=== PATIENT | male | born 1950 | race Caucasian/White ===

== ENCOUNTER → 2018-04-07 | Outpatient (CLI) | payer OTHER | LOC: BMCIMAGING 09:30 | PROVIDERS: ATTEND Emergency Medicine | DX: M25.551 Pain in right hip (principal) ==

== ENCOUNTER 2018-04-10 07:40 | Emergency (ER) | payer OTHER ==
--- NOTE | 2018-04-10 08:13 | EDPHY ---
H & P Time Seen by Provider: 04/10/18 07:55 HPI/ROS: CHIEF COMPLAINT: Sciatic pain HISTORY OF PRESENT ILLNESS: Patient is a 68-year-old male who presents emergency department with sciatic type pain. Patient states his pain started last Wednesday while walking. It gradually increased. He describes pain at the "right SI joint"radiating to the right lateral thigh. Occasionally radiates behind his right leg and down to his ankle. He states his pain is worse when he moves or stands up straight. He went to urgent care was treated with Vicodin and Riboxan. He has not received any steroid. The pain med does help please still has difficulty sleeping or standing up straight. No incontinence of urine or stool. No numbness or weakness. No fevers or chills. REVIEW OF SYSTEMS: My complete review of systems is negative except as mentioned in the HPI. Past Medical/Surgical History: Includes high cholesterol, anxiety Social history: Patient does not smoke. He is . Smoking Status: Never smoked Physical Exam: Vitals noted GENERAL: Well-appearing, in no acute distress, alert. HEENT: Eyes normal to inspection, normal pharynx, no signs of dehydration. NECK: Normal, supple. RESPIRATORY: Clear to auscultation bilaterally, no rales, rhonchi or wheezing. CVS: Regular rate and rhythm, no rubs, murmurs, or gallops. ABDOMEN: Soft, nontender, nondistended, no organomegaly. No mass BACK: Normal to inspection, no CVA tenderness. No spinal tenderness palpation. No step-off. Pelvis: No rash. Mild right SI tenderness to palpation. No deformity. SKIN: Normal color, no rash, warm, dry. No pallor. EXTREMITIES: No pedal edema, no calf tenderness, no Homans sign or cords, no joint swelling. NEURO/PSYCH: Alert and oriented x3, normal mood and affect, normal motor sensory exam. Negative foot raise bilaterally Constitutional: Initial Vital Signs Temperature (C) 36.8 C 04/10/18 07:42 Heart Rate 71 04/10/18 07:42 Respiratory Rate 16 04/10/18 07:42 Blood Pressure 158/86 H 04/10/18 07:42 O2 Sat (%) 95 04/10/18 07:42 O2 Delivery Mode Room Air Allergies/Adverse Reactions: No Known Allergies Allergy (Unverified 04/10/18 07:49) Home Medications: Medication Instructions Recorded Citalopram 04/10/18 Diazepam [Valium] 5 mg PO Q6 #11 tab 04/10/18 Hydrocodone 04/10/18 Robaxin 04/10/18 SIMVASTATIN 04/10/18 oxyCODONE/APAP 5/325 [Percocet 1 - 2 tab PO Q4PRN PRN #11 tab 04/10/18 5/325 (*)] predniSONE 20 mg PO DAILY 4 Days tab 04/10/18 Medical Decision Making ED Course/Re-evaluation: In the emergency department I discussed possible etiologies with the patient. I answered all his questions. Patient will be given prednisone. He will be switched from Vicodin to Percocet. He will continue to take ibuprofen. He will be given Valium. The patient is aware that he should discontinue his Riboxan and vicodin Differential Diagnosis: My differential includes but is not limited to disc herniation, sciatica, mass, malignancy, hematoma, cauda equina syndrome Departure - Departure Disposition: Home, Routine, Self-Care Clinical Impression: Sciatica Qualifiers: Laterality: right Qualified Code(s): M54.31 - Sciatica, right side Condition: Good Instructions: Sciatica (ED) Additional Instructions: Discontinue your Riboxan and hydrocodone. You been given new prescriptions. Take your prednisone once a day. You been given your 1st dose in the emergency department. Take both Percocet and Valium as needed. Referrals: Yoel Jovel MD [Primary Care Provider] - 2-3 days, call for appt. Prescriptions: Diazepam [Valium] 5 mg PO Q6 #11 tab oxyCODONE/APAP 5/325 [Percocet 5/325 (*)] 1 - 2 tab PO Q4PRN PRN #11 tab PRN Reason: For Moderate To Severe Pain predniSONE 20 mg PO DAILY 4 Days tab
[2018-04-10] MEDS ORDERED: predniSONE 20 MG TAB PO ONE (08:14)
[2018-04-10 08:23] VITALS: BP 128/89
== END 2018-04-10 08:26 | disposition home or self-care (01) ==
DX: M54.31 Sciatica, right side (principal)
CPT/HCPCS: 99284; J7512

== ENCOUNTER 2018-05-03 14:04 | Day surgery (SDC) | payer OTHER ==
[2018-05-03] MEDS ORDERED: LIDOCAINE 1% 300 MG/30 ML SDV ONE (15:18)
== END 2018-05-03 16:24 | disposition home or self-care (01) ==
LOC: FIMAGING 14:04
PROVIDERS: ATTEND Physician Assistant
DX: M54.16 Radiculopathy, lumbar region (principal)

== ENCOUNTER 2019-03-15 05:32 | Observation (INO) | payer OTHER ==
[2019-03-15] MEDS ORDERED: ACETAMINOPHEN 500 MG TAB PO ONE (05:56)
[2019-03-15] MEDS ORDERED: ceFAZolin 2 GM/DEXTROSE 100 ML IV ONE (05:56)
[2019-03-15] MEDS ORDERED: GABAPENTIN 300 MG CAP PO ONE (05:56)
[2019-03-15] MEDS ORDERED: LR 1,000 ML IV ONE (05:57)
[2019-03-15] MEDS ORDERED: LIDOCAINE 1% 2 ML INJ ID PRN (05:57)
[2019-03-15] MEDS ORDERED: CHLORHEXIDINE GLUC HIBICLENS 118 ML BTL TP ONE (06:33)
[2019-03-15] MEDS ORDERED: BUPIVACAINE/EPI 0.25% 30 ML SDV ONE (06:33)
[2019-03-15] MEDS ORDERED: THROMBIN (BOVINE) 5,000 UNIT VIAL TP ONE (06:33)
[2019-03-15] MEDS ORDERED: BACITRACIN 50,000 UNITS/10 ML SYR IRR ONE (06:34)
[2019-03-15] MEDS ORDERED: LORATADINE PO PRN (06:50)
[2019-03-15] MEDS ORDERED: PSEUDOEPHEDRINE PO PRN (06:50)
--- NOTE | 2019-03-15 06:50 | PDHPUP ---
History & Physical Update H&P update statement: This history and physical update is based on an assessment of the patient which was completed after admission or registration (within 24 hours), but prior to the surgery/procedure. H&P update: H&P reviewed & patient examined, no change in patient's condition since H&P completed
[2019-03-15] MEDS ORDERED: ONDANSETRON 4 MG/2 ML VIAL IVP PRN ×2 (07:00→11:35)
[2019-03-15] MEDS ORDERED: diphenhydrAMINE 25 MG CAP PO PRN (07:00)
[2019-03-15] MEDS ORDERED: POLYETHYLENE GLYCOL 3350 17 GM PKT PO PRN (07:00)
[2019-03-15] MEDS ORDERED: HYDROmorphONE/DILAUDID 1 MG/ML INJ IVP PRN ×2 (07:00→11:35)
[2019-03-15] MEDS ORDERED: ONDANSETRON DISINTEGRATING 4 MG TAB PO PRN (07:00)
[2019-03-15] MEDS ORDERED: NS 1,000 ML IV SCH (07:00)
[2019-03-15] MEDS ORDERED: oxyCODONE IR 5 MG TAB PO PRN ×2 (07:00→11:35)
[2019-03-15] MEDS ORDERED: LACTULOSE 20 GM/30 ML UDCUP PO PRN (07:00)
[2019-03-15] MEDS ORDERED: BISACODYL 10 MG SUPP PR PRN (07:00)
[2019-03-15] MEDS ORDERED: MAGNESIUM HYDROXIDE 30 ML UDCUP PO PRN (07:00)
[2019-03-15] MEDS ORDERED: MIDAZOLAM 2 MG/2 ML VIAL IVP ONE (07:03)
[2019-03-15] MEDS ORDERED: MIDAZOLAM 2 MG/2 ML VIAL ONE (07:05)
--- NOTE | 2019-03-15 07:09 | PDANEPAE ---
ANE History of Present Illness Right L4 5 and L5 S1 ANE Past Medical History - Cardiovascular History Hx Hypertension: No Hx Arrhythmias: No Hx Chest Pain: No Hx Coronary Artery / Peripheral Vascular Disease: No Hx CHF / Valvular Disease: No Hx Palpitations: No Cardiovascular History Comment: denies - Pulmonary History Hx COPD: No Hx Asthma/Reactive Airway Disease: No Hx Recent Upper Respiratory Infection: Yes Hx Oxygen in Use at Home: No Hx Sleep Apnea: No Sleep Apnea Screening Result - Last Documented: Positive Pulmonary History Comment: seasonal allergies ~twice a year and bronchitis; - Neurologic History Hx Cerebrovascular Accident: No Hx Seizures: No Hx Dementia: No Neurologic History Comment: R foot drop s/t spinal stenosis - Endocrine History Hx Diabetes: No Hypothyroid: No Hyperthyroid: No Obesity: no - Renal History Hx Renal Disorders: No - Liver History Hx Hepatic Disorders: No - Neurological & Psychiatric Hx Hx Neurological and Psychiatric Disorders: No Neurological / Psychiatric History Comment: "Happy pill (citalopram) helps with stress" - Cancer History Hx Cancer: No - Congenital Disorder History Hx Congenital Disorders: Yes 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 Spinal stenosis lumbar and cervical spine. Spondylolithesis - Chronic Pain History Chronic Pain: Yes (R Hip/Leg Pain) - Surgical History Prior Surgeries: Bilateral rotator cuffs. T&A. [place] teeth ANE Review of Systems Review of Systems: - Exercise capacity METS (RN): 4 METS ANE Patient History - Allergies Allergies/Adverse Reactions: No Known Allergies Allergy (Unverified 04/10/18 07:49) - Home Medications Home Medications: Citalopram [CeleXA] 20 mg PO DAILY 04/10/18 [Last Taken 03/14/19 21:00] Simvastatin 20 mg PO DAILY 04/10/18 [Last Taken 03/14/19 21:00] Loratadine/Pseudoephedrine [Claritin-D 12 Hour Tablet] 1 each PO BID PRN [Last Taken 03/14/19 09:00] Ascorbic Acid [Vitamin C 500 mg (*)] 1,000 mg PO DAILY 03/06/19 [Last Taken ] Calcium Carbonate [Oyster Shell Calcium 500 mg (*)] 1,000 mg PO DAILY 03/06/19 [ Last Taken 03/08/19] Herbals/Supplements -Info Only 1 ea PO DAILY 03/06/19 [Last Taken 03/08/19] Oxybutynin Chloride Xl [Ditropan Xl 5mg (*)] 10 mg PO DAILY 03/06/19 [Last Taken 03/13/19] Ranitidine HCl 150 mg PO BID 03/06/19 [Last Taken 03/08/19] Terazosin HCl [Hytrin 2 MG (*)] 2 mg PO HS 03/06/19 [Last Taken 03/14/19 21:00] - NPO status NPO Status: no food or drink >8 hours NPO Since - Liquids (Date): 03/14/19 NPO Since - Liquids (Time): 21:30 NPO Since - Solids (Date): 03/14/19 NPO Since - Solids (Time): 21:30 - Smoking Hx Smoking Status: Never smoked - Family Anes Hx Family Hx Anesthesia Complications: None. ANE Labs/Vital Signs - Vital Signs Blood Pressure: 116/75 Heart Rate: 63 Respiratory Rate: 16 O2 Sat (%): 93 Height: 182.88 cm Weight: 83.915 kg ANE Physical Exam - Airway Neck exam: decreased ROM Mallampati Score: Class 2 - Pulmonary Pulmonary: no respiratory distress, no rales or rhonchi - Cardiovascular Cardiovascular: regular rate and rhythym, no murmur, rub, or gallop ANE Anesthesia Plan Anesthesia Plan: general endotracheal anesthesia Specialized Airway: video laryngoscope
[2019-03-15] MEDS ORDERED: fentaNYL 250 MCG/5 ML INJ ONE (07:15)
[2019-03-15] MEDS ORDERED: PROPOFOL/EMULSION 500 MG/50 ML BOTTLE IV ONE ×3 (07:15→09:46)
[2019-03-15] MEDS ORDERED: BUPIVACAINE 0.25% 30 ML SDV ONE (07:57)
[2019-03-15] MEDS ORDERED: fentaNYL 100 MCG/2 ML INJ ONE ×2 (08:49→10:52)
[2019-03-15] MEDS ORDERED: ESMOLOL HCL 100 MG/10 ML VIAL IV ONE (08:53)
[2019-03-15] MEDS ORDERED: REMIFENTANIL HCL 1 MG VIAL ONE (08:56)
[2019-03-15] MEDS ORDERED: OXYBUTYNIN 5 MG EXT REL TAB PO SCH (09:00)
[2019-03-15] MEDS ORDERED: NON-FORMULARY NEW DRUG (Ranitidine Hcl [Ranitidine Hcl] 150 MG) PO SCH (09:00)
[2019-03-15] MEDS ORDERED: ROCURONIUM 100 MG/10 ML VIAL ONE (09:04)
[2019-03-15] MEDS ORDERED: PHENYLEPHRINE HCL 100 MCG/ML SYR ONE (09:04)
[2019-03-15] MEDS ORDERED: DEXAMETHASONE 4 MG/ML VIAL ONE (09:04)
[2019-03-15] MEDS ORDERED: GLYCOPYRROLATE 0.2 MG/1 ML VIAL ONE (09:04)
[2019-03-15] MEDS ORDERED: DEPO METHYLPREDNISOLONE 40 MG/ML SDV ONE (10:36)
[2019-03-15] MEDS ORDERED: ONDANSETRON 4 MG/2 ML VIAL ONE (10:49)
--- NOTE | 2019-03-15 11:29 | POSTOPPROG ---
Post Op Note Date of Operation: 03/15/19 Surgeon: Jennifer Healy Associate Producer: LENORA Esteves Anesthesiologist: MD Slick Anesthesia: GET(General Endotracheal), Local (Specify) Pre-op Diagnosis: lumbar stenosis right L4/5 and L5/S1 Post-op Diagnosis: LRS right L4/5 and L5/S1 Indication: RLE pain, stenosis Procedure: right L4/5 and L5/S1 hemilaminectomy with LRD Findings: see op report Inf/Abcess present in the surg proc area at time of surgery?: No Depth: Deep Incisional (Fascial) EBL: 100-500 Total fluids administered: see anestesia record Complications: none Bowel Protocol: Yes Clean Closure Performed: Yes
--- NOTE | 2019-03-15 11:32 | SOAPPROG ---
SOAP Progress Note Assessment/Plan: Post Op Visit: S: Awake and alert. NAD. Pt with expected lower back pain O: AFVSS/PERRLA/EOMI No droop CN 2-12 grossly intact +lt touch 5/5 BUE/BLE = CDI A/P: 69 yo male that is s/p right L4/5 and L5/S1 LRD/hemilaminectomy -orders in place -call with any questions or concerns -pt seen by Dr Healy -PT/OT pending -warning signs reviewed -dc later today or tomorrow-will check and see how Pt does Objective: Vital Signs Temp Pulse Resp BP Pulse Ox 36.8 C 63 16 116/75 93 03/15/19 06:41 03/15/19 07:09 03/15/19 07:09 03/15/19 07:09 03/15/19 07:09 ICD10 Worksheet Patient Problems: Problems Problem Status Onset Lateral recess stenosis of cervical spine Acute Lumbar stenosis Acute - ICD10 Problem Qualifiers (1) Lumbar stenosis Qualifiers: Neurogenic claudication status: with neurogenic claudication Qualified Code (s): M48.062 - Spinal stenosis, lumbar region with neurogenic claudication (2) Lateral recess stenosis of cervical spine
[2019-03-15] MEDS ORDERED: fentaNYL 100 MCG/2 ML INJ IVP PRN (11:35)
[2019-03-15] MEDS ORDERED: DIAZEPAM 10 MG/2 ML SYR IVP PRN (11:35)
[2019-03-15] MEDS ORDERED: NALOXONE HCL 0.4 MG/ML INJ IVP PRN (11:35)
[2019-03-15] MEDS ORDERED: METHOCARBAMOL 750 MG TAB ONE (12:19)
[2019-03-15] MEDS: METHOCARBAMOL 750 MG TAB PO PRN (12:20)
[2019-03-15] MEDS: FAMOTIDINE 20 MG TAB PO SCH ×2 (12:35→21:52)
[2019-03-15] MEDS: ATORVASTATIN CALCIUM 10 MG TAB PO SCH (12:35)
[2019-03-15] MEDS: CITALOPRAM 20 MG TAB PO SCH (12:35)
[2019-03-15] MEDS: SENNOSIDES/DOCUSATE SODIUM TAB PO SCH ×2 (12:36→21:52)
--- NOTE | 2019-03-15 12:54 | GOP ---
[f rep st] OPERATIVE REPORT DATE OF OPERATION: 03/15/2019 SURGEON: Mecca Healy MD EXECUTIVE STEWARD: Raj Esteves PA-C. PREOPERATIVE DIAGNOSIS: 1. Lumbar spondylosis. 2. Lumbar bilateral facet arthropathy, L4-5, L5-S1. 3. Right lumbosacral radiculopathy. 4. Lumbar foraminal stenosis L4-5, L5-S1. 5. Axial low back pain. POSTOPERATIVE DIAGNOSIS: 1. Lumbar spondylosis. 2. Lumbar bilateral facet arthropathy, L4-5, L5-S1. 3. Right lumbosacral radiculopathy. 4. Lumbar foraminal stenosis L4-5, L5-S1. 5. Axial low back pain. PROCEDURE PERFORMED: 1. Right L4-5 hemilaminotomy. 2. Medial facetectomy with a right lateral recess decompression for the L5 root and a foraminotomy f or the L4 nerve root. 3. Right L5-S1 hemilaminectomy with a decompression of the right L5 nerve root in the neural foramen and the right L5-S1 nerve root in the lateral recess with a medial facetectomy ([id number], [id number], micros cope). FINDINGS: ESTIMATED BLOOD LOSS: 100 mL. INDICATIONS: The patient is a 69-year-old gentleman with terrible axial low back pain and severe rad iating pain down the right leg who had an evidence of lateral recess stenosis at L4-5 and L5-S1 with a central subligamentous disk herniation at L4-5, but he also had foraminal stenosis of the exiting L 4 and L5 nerve roots at both levels. He had facet arthropathy bilaterally at L5-S1. I thought much of his axial low back pain was related to this and I offered him 2 procedures, either a right-sided d ecompression of L4-5, L5-S1 versus a TLIF and a fusion at L4-5 and L5-S1. I thought there was a reas onable chance we might be able to help his right-sided radiating pain with a simple decompression yessi ne, but I did express to him my concern that totally opening the neural foramen would require a fusio n. I thought our limited ability to do a foraminotomy might yield some relief and it was reasonable to try this, but he knew if it failed, a TLIF could be necessary. I also thought a TLIF would help w ith his chronic axial low back pain and the bilateral facet findings at L4-5 and L5-S1, but he seemed to sort of accept the possibility of ongoing low back pain if we could eliminate the right lumbosacr al radiculopathy. We met and discussed this several times. They did want to try the smaller procedu re even though he knew it was less successful than the larger procedure. He knew there was risk of n erve injury, spinal fluid leak, and the possible need for the larger surgery. He knew there was risk of infection and continued symptoms. He wanted to proceed despite the risks. DESCRIPTION OF PROCEDURE: The patient was taken to the operating room, placed in a supine position. General anesthesia was begun. The patient was flipped prone on the Anthony frame. Care was taken to pad all points of contact. His back was sterilely prepped and draped in the usual fashion. A local izing x-ray was taken. He had some low blood pressure as we were positioning him, but this was well handled by the anesthesiologist. I then injected 80 cc of 0.25% Marcaine with epinephrine into the p araspinal muscles to help with postoperative pain. There was a small amount of epinephrine in this i njectate and this caused his blood pressure to increase and, again, this was handled by the anesthesi ologist. We proceeded with surgery and thus we began the main incision and the subcutaneous tissue w as dissected using Bovie cautery down to the fascia on the right side at L4-5, L5-S1 and the patient had a tendency to have spasms as we were doing this and he was felt to be somewhat white. The anesth esiologist handled this, but it eventually took the addition of remifentanil to stop this motion with out using paralytics. We were performing SSEP monitoring as well as intended EMG monitoring and want ed to avoid paralytic agents. We measured the depth of our dissection, placed a self-retaining retra ctor, shot another x-ray, and under the operating microscope, drilled a right L4-5 and L5-S1 hemilami notomy, preserving the lateral facet joint at L4-5, L5-S1. Under the scope, we began at L4-5 where w e opened the ligamentum flavum, performed a right hemidecompression at L4-5, and decompressed the exi ting L4 nerve root with our banana Kerrison. We then mobilized the 5 root adjacent to the pedicle, s wept it medially, and we would get irritation as we would sweep under the thecal sac about the L4-5 d isk. We also probed rostral to the disk where on MRI demonstrated a free-fragment central herniation . I spent considerable time actually probing this area and did not get any large fragments. We cut the posterior longitudinal ligament about the L4-5 disk and I squeezed some fragments out that were c entrally located from this location, but I could not get the large fragment that was seen on the MRI. I kept sweeping and as I swept under the thecal sac with a ball-tip probe, it did have a tendency t o cause a single spike firing of the underlying nerves; although, I do not believe far neuro monitor could appreciate this. I eventually gave up, there was no large piece of material to take out and th ere was great decompression of the traversing L5 root which had been pinched at the medial facet join t there. We then turned our attention to L5-S1 where we opened the ligamentum flavum and when I open ed the ligamentum flavum, it appeared that I had a durotomy with intact arachnoid. I simply covered this area with a cottonoid. It was quite apparent that the dura had been opened and I thought that w e had a complication., but then worked our way circumferentially around this area, we had seen no CSF , but I worked my way around this area that was protected by a cottonoid, decompressed, and removed t he right hemilamina of L5 and worked my way down to the S1 pedicle and worked my way up along with th e S1 pedicle into the L5-S1 facet joint. I removed the hypertrophic medial facet and there was sever e stenosis for the traversing root there. I got a great decompression and as I worked my way up to t he L5 pedicle and decompressed along the pedicle of the exiting L5 nerve root, I had completed my cir cumferential decompression. I then removed the cottonoid and there was no evidence of a durotomy wha tsoever and I was very encouraged by this. We had been cautious in our approach and I was happy to f ind that indeed the dura was totally intact. We then irrigated large amounts of antibiotic saline an d inspected the entire decompressive area circumferentially. We used a banana Kerrison to open the f oramen for the exiting L5 root at L5-S1 and I was able to pass my ball-tip probe out along the 5 root . I then placed a little Depo-Medrol over both of the L5-S1 and L4 nerve roots at both levels. We t hen closed the incision in multiple layers using Vicryl sutures. A running PDS was placed in the ski n itself. The patient was reversed from anesthesia, extubated, and transferred to recovery room in s table condition. There were no complications. COMPLICATIONS: None. /[id number]/MODL
[2019-03-15] MEDS: GABAPENTIN 300 MG CAP PO SCH ×2 (13:21→21:52)
[2019-03-15] MEDS: ceFAZolin 2 GM/DEXTROSE 100 ML IV SCH ×2 (13:42→21:52)
[2019-03-15] MEDS: ACETAMINOPHEN 500 MG TAB PO SCH ×2 (15:48→22:03)
[2019-03-15] MEDS ORDERED: TERAZOSIN HCL 2 MG CAP PO SCH (19:00)
[2019-03-15] MEDS: OXYBUTYNIN 5 MG EXT REL TAB PO SCH (19:41)
[2019-03-15] MEDS: CEPACOL LOZENGE PO PRN (22:05)
[2019-03-16] MEDS: GABAPENTIN 300 MG CAP PO SCH ×2 (06:04→13:42)
[2019-03-16] MEDS: ACETAMINOPHEN 500 MG TAB PO SCH ×3 (06:30→14:16)
--- NOTE | 2019-03-16 08:03 | NEUSURGPN ---
Date of Surgery: 03/15/19 Post Op Day: 1 Assessment/Plan: Assessment: 69 yo male that is s/p right L4/5 and L5/S1 LRD/hemilaminectomy POD #1 Plan: -s/p lumbar decompression: doing well-legs better -orders in place -call with any questions or concerns -pt seen by Dr Healy as well -PT/OT pending this am -warning signs reviewed -dc later today-orders in place for dc today -pt and understand and agree Subjective: Awake and alert. NAD. Eating/drinking and voiding. No f/c/n/v/d. No f/c/n/v/ d. Objective: Awake and alert. NAD. Pt with expected lower back pain that is at a 2-3/10 AFVSS/PERRLA/EOMI No droop CN 2-12 grossly intact +lt touch 5/5 BUE/BLE = CDI Neuro Check Frequency: per routine Urinary Catheter in Place: No - Physician Discussed Patient with Dr.: Niraj Patient Seen by : Niraj Neurosurgery Physical Exam - Vitals, I&O, Labs I and O 03/15/19 03/16/19 03/17/19 05:59 05:59 05:59 Intake Total 2722 Output Total 875 300 Balance 1847 -300 Weight 83.915 kg Intake: Oral (ml) 350 IV Intake (ml) 1675 IV Infused (ml) 697 Ns 1,000 ml @ 75 mls/hr 582 IV CONT JASPER Rx#: [id number] ceFAZolin 2 GM/DEXTROSE 115 100 ml @ 200 mls/hr IV Q8HRS JASPER Rx#:[id number] Output: Urine (ml) 775 300 Toilet 125 Urinal 650 300 Estimated Blood Loss (ml) 100 Other: Intake Quantity Yes Sufficient Output Comment Toilet pt stated he voided Bladder Scan Volume (ml) 204 Toilet 730 Urinal 525 Post Void Residual Scan Volume (ml) Urinal 482 Vital Signs Temp Pulse Resp BP Pulse Ox 36.4 C 58 L 16 114/64 97 03/16/19 07:49 03/16/19 07:49 03/16/19 07:49 03/16/19 07:49 03/16/19 07:49 ICD10 Worksheet Patient Problems: Problems Problem Status Onset Lateral recess stenosis of cervical spine Acute Lumbar stenosis Acute - ICD10 Problem Qualifiers (1) Lumbar stenosis Qualifiers: Neurogenic claudication status: with neurogenic claudication Qualified Code (s): M48.062 - Spinal stenosis, lumbar region with neurogenic claudication (2) Lateral recess stenosis of cervical spine
[2019-03-16] MEDS: OXYBUTYNIN 5 MG EXT REL TAB PO SCH (08:24)
[2019-03-16] MEDS: SENNOSIDES/DOCUSATE SODIUM TAB PO SCH (08:24)
[2019-03-16] MEDS: ATORVASTATIN CALCIUM 10 MG TAB PO SCH (08:25)
[2019-03-16] MEDS: FAMOTIDINE 20 MG TAB PO SCH (08:25)
[2019-03-16] MEDS: CITALOPRAM 20 MG TAB PO SCH (08:28)
[2019-03-16] MEDS ORDERED: NS BOLUS 1000 ML (Wide open) IV ONE (11:00)
[2019-03-16] MEDS: CEPACOL LOZENGE PO PRN (11:14)
[2019-03-16 11:15] VITALS: BP 117/67
[2019-03-16] MEDS: METHOCARBAMOL 750 MG TAB PO PRN (14:46)
--- NOTE | 2019-03-16 15:26 | ASMTLACE ---
BHUMIE Length of stay for Answers: 2 days current admission Acuity / Level of Answers: No Care: Did the patient have an inpatient admission? Comorbidities - select Answers: Opioid dependence all that apply / Chronic pain # of Emergency department Answers: 0 visits in the last 6 months Social determinants Answers: Mental health diagnosis (anxiety, depression, pers onality disorders, etc.) Score: 9 Date Signed: 03/16/2019 03:25 PM Electronically Signed By:RICHARD Cotter
--- NOTE | 2019-03-16 15:27 | ASMTCMCOM ---
CM Note CM Note Notes: Pt medically stable for d/c home with family support. Pt had planned social surgery, resides with . PT/OT rec home. No CM d/c needs identified. Date Signed: 03/16/2019 03:26 PM Electronically Signed By:RICHARD Cotter
[2019-03-18] MEDS ORDERED: ENOXAPARIN 40 MG/0.4 ML SYR SC SCH (09:00)
== END 2019-03-16 15:13 | disposition home or self-care (01) ==
LOC: F3N 05:32 → EDSTATUS 12:30 → F3N 12:43
PROVIDERS: ADMIT Neurological Surgery; ATTEND Neurological Surgery
DX: M51.27 Other intervertebral disc displacement, lumbosacral region (principal); M43.16 Spondylolisthesis, lumbar region; M54.16 Radiculopathy, lumbar region
CPT/HCPCS: 63047; 63048; 76000; 97116; 97162; 97165; J0690; J1030; J1100; J2250; J2370; J2405; J2704; J3010

== ENCOUNTER 2019-04-12 08:24 | Inpatient (IN) | payer OTHER | END 2019-04-14 15:50 | disposition home or self-care (01) | LOC: F3E 08:24 → F2N 12:02 → F3N 14:51 ==